=== PATIENT | female | born 1970 | race Caucasian/White ===

== ENCOUNTER 2016-12-05 20:32 | Emergency (ER) | payer OTHER ==
[~2016-12-05] VITALS: Wt 44.5 kg
[~2016-12-05 20:32] MED LIST: ADV10050 INHALATION; ALBU8.5H3 INH; ALPR0.25 PO; ALPR0.254 PO; CEPH-443 PO; IPRA4AER INHALATION; METH10TA5 PO; METO-429 PO; PROP20TA4 PO; TAP5 PO
--- NOTE | 2016-12-05 22:10 | EN ---
Date/Time of Note Date/Time of Note DATE: 12/05/16 TIME: 22:09 ER Progress Note Patient is a 38-year-old female with history of hyperthyroidism presents to the ER for shortness of breath, cough, nasal congestion. Upon his initial exam patient reveals she is currently suicidal and afraid to go home. Patient denies having plan. She states she has not ever been suicidal before. Patient seen pacing in room during exam. Dr. Wolff notified. FUAD DUEÑAS NP Dec 05, 2016 22:10
--- NOTE | 2016-12-05 22:54 | PSY ---
Date/Time of Note Date/Time of Note DATE: 12/05/16 TIME: 22:46 Psychiatric Subjective Eval Consent Pt consented to telemedicine: Yes Subjective Evaluation Patient location: emergency Chief Complaint: sob, coug and congestion Reason for consult: Suicidal ideation History of present illness Patient is a 38 year old female with not previous recorded psychiatric history. She presented to the ER today for cough and respiratory issues. She also informed the providers that she is suicidal. Patient states she has been depressed for about one week. She is not sleeping well, not eating well, feeling anhedonic, and having recurrent suicidal thinking. Her thoughts have advanced to the idea of overdosing. She does not feel safe out of the hospital and is scared that she will act on these thoughts. Patient has also been seeing "monsters" for about on year. She is not able to describe this but does admit to intermittent meth use during the year. He last use was last week. Patient is not sure if she has ever attempted to harm herself stating "I don't know." She is emotionally labile tonight and frequently breaks down crying. Past psychiatric history Not clear. She states she takes xanax and it appears she may have been on an antidepressant in the past. She denies past psychiatric hospitalization. Hospitalization: no Family History She is adopted Medical history Problems Medical Problems: (1) Abdominal pain Status: Acute (2) Dehydration Status: Acute (3) Hyperthyroidism Status: Acute (4) Hyperthyroidism Status: Chronic (5) Medication refill Status: Acute (6) Multiple complaints Status: Acute (7) Palpitations Status: Acute (8) UTI (urinary tract infection) Status: Acute (9) UTI (urinary tract infection) Status: Acute Allergies: Coded Allergies: Penicillins (Verified Allergy, Intermediate, 09/06/16) Sulfa (Sulfonamide Antibiotics) (Verified Allergy, Unknown, 10/17/16) Substance Abuse Substance abuse history: Yes (meth) Prior substance abuse treatmen: No Social History Marital status: single Level of education: Not addressed DPA/Conservatorship: No Occupation/Custodial: Not addressed - patient too labile Psychiatric Objective Eval Physical Examination: Physical Examination: Applicable Sleep: Insomnia Appetite: Decreased Energy: Decreased Interest: Decreased Mental Status Examination: Appearance: Disheveled Eye Contact: Fair Psychomotor Activity: Agitated Behavior: Cooperative Speech: Other (speech with tears and emotional labilie) AFFECT: Libile Mood: Depressed Though Process: Linear Thought Content: Delusions, Hallucinations Suicidal: Yes Homicidal: No On 72 hour hold: No Orientation: x3 Cognition: Alert Insight: Impared Judgement: Impared Attention Span: Distractible Assessment and Plan Assessment/Diagnosis [place] I: Unspecified Depressive Disorder, Stimulant Use Disorder [place] III: Thyroid Disorder Recommendation/Plan Medication Management Per inpatient psychiatry. Psychotherapy N/A Pt. Caregiver/Family Education N/A Follow-up/Disposition Recommend transfer to inpatient psychiatry for suicidal ideation. 5150 Recommendation: Place Hold (Patient reports suicidal ideation with plans of overdosing. Does not feel safe out of the hospital. ) JULIANNA ALEXIS Dec 05, 2016 22:53
[2016-12-05 22:57] LABS: ADD UMIC YES; URINE BILIRUBIN (Dip) NEGATIVE (NEGATIVE); URINE BLOOD (Dip) 2+ (NEGATIVE); URINE COLOR LT. YELLOW (YELLOW); URINE KETONES (Dip) NEGATIVE (NEGATIVE); URINE LEUKOCYTE ESTERASE (Dip) NEGATIVE (NEGATIVE); URINE NITRITE (Dip) NEGATIVE (NEGATIVE); URINE TOTAL PROTEIN (Dip) NEGATIVE (NEGATIVE); URINE UROBILINOGEN (Dip) 0.2 E.U./dL (0.1-1.0)
[2016-12-05 22:58] LABS: HEMATOCRIT 39.4 % (37.0-47.0); HEMOGLOBIN 12.7 g/dl (12.0-16.0); MEAN CORPUSCULAR HEMOGLOBIN 24.9 pg (29.0-33.0); MEAN CORPUSCULAR HGB CONC 32.2 g/dl (32.0-37.0); MEAN CORPUSCULAR VOLUME 77.1 fl (82.0-101.0); MEAN PLATELET VOLUME 10.5 fl (7.4-10.4); PLATELET COUNT 276 10^3/UL (140-440); RED CELL DISTRIBUTION WIDTH 14.3 % (11.5-14.5); UNCORRECTED WBC 6.1 10^3/ul (4.8-10.8); WHITE BLOOD COUNT 6.1 10^3/ul (4.8-10.8)
[2016-12-05 23:01] LABS: CONDITION 1; LH ANALYZER COMMENTS 1
[2016-12-05 23:03] LABS: ALBUMIN 3.4 g/dl (3.3-4.9)
[2016-12-05 23:04] LABS: CHLORIDE 104 mmol/L (97-110); SODIUM 145 mmol/L (135-144)
[2016-12-05 23:06] LABS: ALANINE AMINOTRANSFERASE 66 IU/L (13-69); ALBUMIN/GLOBULIN RATIO 0.82; ALKALINE PHOSPHATASE 202 IU/L (42-121); ANION GAP 17 (8-16); ASPARTATE AMINO TRANSFERASE 70 IU/L (15-46); BILIRUBIN,INDIRECT 0.1 mg/dl (0-1.1); BILIRUBIN,TOTAL 0.1 mg/dl (0.2-1.3); BLOOD UREA NITROGEN 14 mg/dl (7-20); CARBON DIOXIDE 28 mmol/L (21-31); CREATININE 0.34 mg/dl (0.44-1.00); TOTAL PROTEIN 7.5 g/dl (6.1-8.1)
[2016-12-05 23:07] LABS: CALCIUM 8.9 mg/dl (8.4-10.2); GLUCOSE 105 mg/dl (70-220)
[2016-12-05 23:09] LABS: ACETAMINOPHEN < 10.0 ug/ml (10.0-30.0); ETHANOL < 10.0 mg/dl; SALICYLATE < 1.0 mg/dl (5.0-30.0)
[2016-12-05 23:11] LABS: BACTERIA,URINE FEW; SQUAMOUS EPITHELIAL CELL,UR FEW
[2016-12-05 23:35] LABS: BARBITURATES NEGATIVE (NEGATIVE); BENZODIAZEPINES NEGATIVE (NEGATIVE); CANNABINOIDS NEGATIVE (NEGATIVE); COCAINE NEGATIVE (NEGATIVE); OPIATES NEGATIVE (NEGATIVE)
[2016-12-05 23:41] LABS: LYMPHOCYTES # 2.2 10^3/ul (0.8-2.9); MONOCYTE # 0.6 10^3/ul (0.3-0.9); NEUTROPHIL # 3.3 10^3/ul (1.6-7.5); PLATELET ESTIMATE PLT APPEAR ADEQUATE
--- NOTE | 2016-12-05 23:56 | ERA ---
ER Documentation Chief Complaint Date/Time DATE: 12/05/16 TIME: 23:55 Chief Complaint sob, coug and congestion HPI This is a 46-year-old female initially checked in with complaints of shortness with cough and congestion. Upon being interviewed, patient admits to being suicidal and using methamphetamines. She says she has no specific plan. Denies any hallucinations. Denies any other current complaints. ROS All systems reviewed and are negative except as per history of present illness. Medications Home Meds Active Scripts Methimazole* (Methimazole*) 10 Mg Tablet, 10 MG PO TID, #90 TAB Prov:MAIKEL LAWRENCE MD 10/17/16 Albuterol/Ipratropium* (Combivent Respimat*) 20-100 Mcg/Inh - 4 Gm Aer.w.adap, 1 PUFF INHALATION QID for WHEEZING, #1 INHALER Prov:MAIKEL LAWRENCE MD 10/17/16 Albuterol Sulfate* (Proair HFA*) 8.5 Gm Hfa.aer.ad, 2 PUFF INH Q6H Y for WHEEZING AND SOB, #1 INHALER Prov:MAIKEL LAWRENCE MD 10/17/16 Salmeterol Xinaf-Fluticasone* (Advair*) 100/50 Diskus Inhaler, 1 INH INHALATION BID, #1 INHALER Prov:MAIKEL LAWRENCE MD 10/17/16 Alprazolam* (Alprazolam*) 0.25 Mg Tablet, 0.25 MG PO TID Y for ANXIETY, #12 TAB Prov:MAIKEL LAWRENCE MD 10/17/16 Propranolol Hcl* (Propranolol Hcl*) 20 Mg Tablet, 20 MG PO TID, #90 TAB Prov:MAIKEL LAWRENCE MD 10/17/16 Metoprolol Tartrate* (Lopressor*) 50 Mg Tab, 50 MG PO BID Y for palpitations for 30 Days, TAB Prov:ANGELA MATIAS 09/08/16 Discontinued Scripts Cephalexin* (Keflex*) 500 Mg Capsule, 500 MG PO QID for 7 Days, CAP Prov:MAIKEL LAWRENCE MD 10/17/16 Albuterol/Ipratropium* (Combivent Respimat*) 20-100 Mcg/Inh - 4 Gm Aer.w.adap, 1 PUFF INHALATION Q4, #1 INHALER 2 Refills Prov:ANGELA MATIAS. 09/08/16 Salmeterol Xinaf-Fluticasone* (Advair*) 100/50 Diskus Inhaler, 1 INH INHALATION BID, #1 INHALER 2 Refills Prov:ANGELA MATIAS. 09/08/16 Alprazolam* (Xanax*) 0.25 Mg Tablet, 0.25 MG PO Q8H Y for ANXIETY, #20 TAB Prov:ANGELA MATIAS. 09/08/16 Methimazole* (Methimazole*) 5 Mg Tablet, 10 MG PO TID for 30 Days, TAB 2 Refills Prov:ANGELA MATIAS. 09/08/16 Allergies Allergies: Coded Allergies: Penicillins (Verified Allergy, Intermediate, 12/05/16) Sulfa (Sulfonamide Antibiotics) (Verified Allergy, Unknown, 12/05/16) PMhx/Soc History of Surgery: Yes (tubal ligation) Anesthesia Reaction: No Hx Neurological Disorder: No Hx Respiratory Disorders: Yes (asthma) Hx Cardiac Disorders: No Hx Psychiatric Problems: Yes (BIPOLAR) Hx Miscellaneous Medical Probl: No Hx Alcohol Use: No Hx Substance Use: Yes (METH 5 DAYS AGO) Hx Tobacco Use: Yes (1/2 PK) Smoking Status: Current every day smoker Physical Exam Vitals Vital Signs Date Time Temp Pulse Resp B/P Pulse Ox O2 Delivery O2 Flow Rate FiO2 12/05/16 20:36 98.8 125 20 130/82 98 Physical Exam Const: [] Head: Atraumatic Eyes: Normal Conjunctiva ENT: Normal External Ears, Nose and Mouth. Neck: Full range of motion..~ No meningismus. Resp: Clear to auscultation bilaterally Cardio: Regular rate and rhythm, no murmurs Abd: Soft, non tender, non distended. Normal bowel sounds Skin: No petechiae or rashes Back: No midline or flank tenderness Ext: No cyanosis, or edema Neur: Awake and alert Psych: Normal Mood and Affect Result Diagram: 12/05/16223112/05/162231 Results 24 hrs Laboratory Tests Test 12/05/16 22:26 12/05/16 22:32 Urine Amphetamines Screen POSITIVE Urine Bacteria FEW Urine Barbiturates NEGATIVE Urine Benzodiazepines Screen NEGATIVE Urine Bilirubin NEGATIVE Urine Cannabinoids NEGATIVE Urine Clarity CLEAR Urine Cocaine Screen NEGATIVE Urine Color LT. YELLOW Urine Glucose 0.5%% Urine Hemoglobin 2+ Urine Ketones NEGATIVE Urine Leukocyte Esterase NEGATIVE Urine Microscopic RBC 2-5/HPF Urine Microscopic WBC 0-2/HPF Urine Nitrite NEGATIVE Urine Opiates Screen NEGATIVE Urine Specific [place] 1.025 Urine Squamous Epithelial Cells FEW Urine Total Protein NEGATIVE Urine Urobilinogen 0.2 E.U./dL Urine pH 6.0 Acetaminophen Level < 10.0ug/ml Alanine Aminotransferase (ALT/SGPT) 66IU/L Albumin 3.4g/dl Albumin/Globulin Ratio 0.82 Alkaline Phosphatase 202IU/L Anion Gap 17 Aspartate Amino Transf (AST/SGOT) 70IU/L Blood Morphology Comment Blood Urea Nitrogen 14mg/dl Calcium Level 8.9mg/dl Carbon Dioxide Level 28mmol/L Chloride Level 104mmol/L Creatinine 0.34mg/dl Direct Bilirubin 0.00mg/dl Ethyl Alcohol Level < 10.0mg/dl Globulin 4.10g/dl Glucose Level 105mg/dl Hematocrit 39.4% Hemoglobin 12.7g/dl Indirect Bilirubin 0.1mg/dl Lymphocytes # 2.210^3/ul Lymphocytes % 36.0% Mean Corpuscular Hemoglobin 24.9pg Mean Corpuscular Hemoglobin Concent 32.2g/dl Mean Corpuscular Volume 77.1fl Mean Platelet Volume 10.5fl Monocytes # 0.610^3/ul Monocytes % 10.0% Neutrophils # 3.310^3/ul Neutrophils % 54.0% Platelet Count 57151^3/UL Platelet Estimate PLT APPEAR ADEQUATE Potassium Level 4.0mmol/L Red Blood Count 5.1010^6/ul Red Cell Distribution Width 14.3% Salicylates Level < 1.0mg/dl Serum HCG, Qualitative NEGATIVE Sodium Level 145mmol/L Total Bilirubin 0.1mg/dl Total Protein 7.5g/dl White Blood Count 6.110^3/ul Procedures/MDM Patient's behavioral symptoms have stabilized while in the department. Patient is medically cleared and appropriate for psychiatric evaluation and work up. No e/o neurologic, toxic, infectious, or metabolic cause. Patient was placed on a recommended 5150 hold by telemetry psychiatry. Patient awaiting PEG placement at this point. Clinically stable. Stable vital signs. Observation Note: Time: 4 hours Family Hx: No Hypertension Evaluation: Multiple exams showed improving symptoms and no evidence of deterioration Departure Diagnosis: Primary Impression: Suicidal ideation Condition: Stable RENETTA WALLER Dec 05, 2016 23:56
[2016-12-06 07:40] VITALS: BP 134/79; PULSE 95; RESP 18; TEMP 98.5
== END 2016-12-06 11:03 ==
LOC: E/R 20:32
DX: R06.02 Shortness of breath (principal); J45.909 Unspecified asthma, uncomplicated; R40.2142 Coma scale, eyes open, spontaneous, at arrival to emergency department; R40.2362 Coma scale, best motor response, obeys commands, at arrival to emergency department; R40.2252 Coma scale, best verbal response, oriented, at arrival to emergency department; F17.210 Nicotine dependence, cigarettes, uncomplicated; R45.851 Suicidal ideations
CPT/HCPCS: 36415; 80053; 80306; 80307; 81001; 84703; 85025; Z7502; 81003

== ENCOUNTER 2016-12-10 07:36 | Inpatient (IN) | END 2016-12-12 15:25 | disposition home or self-care (01) | DRG 192 | DX: J44.1 Chronic obstructive pulmonary disease with (acute) exacerbation (principal); F15.10 Other stimulant abuse, uncomplicated; E05.90 Thyrotoxicosis, unspecified without thyrotoxic crisis or storm; Z59.0 Homelessness ==

== ENCOUNTER 2017-04-09 01:32 | Emergency (ER) | payer OTHER ==
[~2017-04-09] VITALS: Wt 47.5 kg
[~2017-04-09 01:32] MED LIST changes: -ALBU8.5H3 INH; -ALPR0.25 PO; -CEPH-443 PO; -METO-429 PO; +METO-448 PO; -PROP20TA4 PO; -TAP5 PO
[2017-04-09 04:13] LABS: ADD SCAN DIFF NO
[2017-04-09 04:17] LABS: BASOPHILS % 0.3 % (0.0-2.0); EOSINOPHILS # 0.4 10^3/ul (0.0-0.5); HEMATOCRIT 42.9 % (37.0-47.0); HEMOGLOBIN 13.7 g/dl (12.0-16.0); LYMPHOCYTES # 2.4 10^3/ul (0.8-2.9); LYMPHOCYTES % 33.8 % (15.0-51.0); MEAN CORPUSCULAR HGB CONC 31.9 g/dl (32.0-37.0); MEAN CORPUSCULAR VOLUME 81.4 fl (82.0-101.0); MEAN PLATELET VOLUME 11.6 fl (7.4-10.4); MONOCYTE # 0.6 10^3/ul (0.3-0.9); MONOCYTES % 8.3 % (0.0-11.0); NEUTROPHIL # 3.7 10^3/ul (1.6-7.5); NEUTROPHILS % 52.5 % (39.0-77.0); PLATELET COUNT 279 10^3/UL (140-415); RED BLOOD COUNT 5.27 10^6/ul (4.20-5.40); RED CELL DISTRIBUTION WIDTH 13.7 % (11.5-14.5)
[2017-04-09 04:35] LABS: ADD UMIC YES; URINE BILIRUBIN (Dip) NEGATIVE (NEGATIVE); URINE BLOOD (Dip) NEGATIVE (NEGATIVE); URINE COLOR LT. YELLOW (YELLOW); URINE GLUCOSE (Dip) NEGATIVE (NEGATIVE); URINE KETONES (Dip) NEGATIVE (NEGATIVE); URINE LEUKOCYTE ESTERASE (Dip) TRACE (NEGATIVE); URINE NITRITE (Dip) NEGATIVE (NEGATIVE); URINE TOTAL PROTEIN (Dip) NEGATIVE (NEGATIVE); URINE UROBILINOGEN (Dip) 0.2 E.U./dL (0.1-1.0)
[2017-04-09 04:36] LABS: CHLORIDE 105 mmol/L (97-110); POTASSIUM 4.2 mmol/L (3.5-5.1); SODIUM 143 mmol/L (135-144)
[2017-04-09 04:39] LABS: ETHANOL < 10.0 mg/dl; SALICYLATE < 1.0 mg/dl (5.0-30.0)
[2017-04-09 04:39] LABS: ANION GAP 17 (8-16); BLOOD UREA NITROGEN 24 mg/dl (7-20); CALCIUM 9.2 mg/dl (8.4-10.2); CARBON DIOXIDE 25 mmol/L (21-31); CREATININE 0.41 mg/dl (0.44-1.00); GLUCOSE 103 mg/dl (70-220)
[2017-04-09 04:40] LABS: ACETAMINOPHEN < 10.0 ug/ml (10.0-30.0)
[2017-04-09 04:53] LABS: BACTERIA,URINE MODERATE; BARBITURATES NEGATIVE (NEGATIVE); BENZODIAZEPINES NEGATIVE (NEGATIVE); CANNABINOIDS POSITIVE (NEGATIVE); COCAINE NEGATIVE (NEGATIVE); OPIATES NEGATIVE (NEGATIVE); SQUAMOUS EPITHELIAL CELL,UR FEW; URINE RBCS 0-2 /HPF (0)
[2017-04-09 05:30] LABS: THYROID STIMULATING HORMONE < 0.015 MIU/L (0.465-4.680)
--- NOTE | 2017-04-09 05:34 | ERD ---
ER Documentation Chief Complaint Date/Time DATE: 04/09/17 TIME: 05:30 Chief Complaint Anxiety with history of hyperthyroidism HPI This 47-year-old female comes emergency room stating she has anxiety and she has a history of hyperthyroidism like her thyroid level checked. She feels jittery. She also says that she is hearing voices that tell her to hurt herself. She has a psychiatric history she states. She denies any headache or any specific pain. ROS All systems reviewed and are negative except as per history of present illness. Medications Home Meds Active Scripts Metoprolol Tartrate* (Lopressor*) 25 Mg Tab, 25 MG PO Q8, #63 TAB Prov:GABE JUNIOR 12/12/16 Methimazole* (Methimazole*) 10 Mg Tablet, 60 MG PO DAILY for 30 Days, TAB Prov:GABE JUNIOR 12/12/16 Albuterol/Ipratropium* (Combivent Respimat*) 20-100 Mcg/Inh - 4 Gm Aer.w.adap, 1 PUFF INHALATION QID for WHEEZING, #1 INHALER Prov:MAIKEL LAWRENCE MD 10/17/16 Salmeterol Xinaf-Fluticasone* (Advair*) 100/50 Diskus Inhaler, 1 INH INHALATION BID, #1 INHALER Prov:MAIKEL LAWRENCE MD 10/17/16 Alprazolam* (Alprazolam*) 0.25 Mg Tablet, 0.25 MG PO TID Y for ANXIETY, #12 TAB Prov:MAIKEL LAWRENCE MD 10/17/16 Allergies Allergies: Coded Allergies: Penicillins (Verified Allergy, Intermediate, 12/05/16) Sulfa (Sulfonamide Antibiotics) (Verified Allergy, Unknown, 12/05/16) PMhx/Soc History of Surgery: Yes (TUBAL LIGATION IN 1990) Anesthesia Reaction: No Hx Neurological Disorder: No Hx Respiratory Disorders: Yes (asthma) Hx Cardiac Disorders: No Hx Psychiatric Problems: No Hx Miscellaneous Medical Probl: No Hx Alcohol Use: No Hx Substance Use: No Hx Tobacco Use: Yes Smoking Status: Current every day smoker Physical Exam Vitals Vital Signs Date Time Temp Pulse Resp B/P Pulse Ox O2 Delivery O2 Flow Rate FiO2 04/09/17 11:05 97.8 70 18 125/79 99 Room Air 04/09/17 05:36 97.1 99 18 131/69 99 Room Air 04/09/17 01:39 98.6 75 20 133/63 100 Physical Exam Const: [] No acute distress Head: Atraumatic Eyes: Normal Conjunctiva, EOMI, GABY ENT: Normal External Ears, Nose and Mouth. Neck: Full range of motion..~ No meningismus. Resp: Clear to auscultation bilaterally Cardio: Regular rate and rhythm, no murmurs Abd: Soft, non tender, non distended. Normal bowel sounds Skin: No petechiae or rashes Back: No midline or flank tenderness Ext: No cyanosis, or edema Neur: Awake and alert and oriented 3, no focal deficits Psych: Appears anxious Result Diagram: 04/09/175 04/09/17 0345 Results 24 hrs Laboratory Tests Test 04/09/17 03:45 04/09/17 03:50 White Blood Count 7.010^3/ul Red Blood Count 5.2710^6/ul Hemoglobin 13.7g/dl Hematocrit 42.9% Mean Corpuscular Volume 81.4fl Mean Corpuscular Hemoglobin 26.0pg Mean Corpuscular Hemoglobin Concent 31.9g/dl Red Cell Distribution Width 13.7% Platelet Count 96519^3/UL Mean Platelet Volume 11.6fl Neutrophils % 52.5% Lymphocytes % 33.8% Monocytes % 8.3% Eosinophils % 5.0% Basophils % 0.3% Nucleated Red Blood Cells % 0.0/100WBC Neutrophils # 3.710^3/ul Lymphocytes # 2.410^3/ul Monocytes # 0.610^3/ul Eosinophils # 0.410^3/ul Basophils # 0.010^3/ul Nucleated Red Blood Cells # 0.010^3/ul Sodium Level 143mmol/L Potassium Level 4.2mmol/L Chloride Level 105mmol/L Carbon Dioxide Level 25mmol/L Anion Gap 17 Blood Urea Nitrogen 24mg/dl Creatinine 0.41mg/dl Glucose Level 103mg/dl Calcium Level 9.2mg/dl Thyroid Stimulating Hormone (TSH) < 0.015MIU/L Urine Color LT. YELLOW Urine Clarity SLIGHTLY CLOUDY Urine pH 7.0 Urine Specific [place] 1.020 Urine Ketones NEGATIVE Urine Nitrite NEGATIVE Urine Bilirubin NEGATIVE Urine Urobilinogen 0.2 E.U./dL Urine Leukocyte Esterase TRACE Urine Microscopic RBC 0-2/HPF Urine Microscopic WBC 5-10/HPF Urine Squamous Epithelial Cells FEW Urine Bacteria MODERATE Urine Hemoglobin NEGATIVE Urine Glucose NEGATIVE% Urine Total Protein NEGATIVE Free Thyroxine Index 4.44ug/ml Thyroxine (T4) 12.6ug/dl Triiodothyronine (T3) Uptake 35.2% Salicylates Level < 1.0mg/dl Urine Opiates Screen NEGATIVE Acetaminophen Level < 10.0ug/ml Urine Barbiturates NEGATIVE Urine Amphetamines Screen POSITIVE Urine Benzodiazepines Screen NEGATIVE Urine Cocaine Screen NEGATIVE Urine Cannabinoids POSITIVE Ethyl Alcohol Level < 10.0mg/dl Current Medications Medications (Trade) Dose Ordered Sig/[place] Route PRN Reason Start Time Stop Time Status Last Admin Dose Admin Lorazepam (Ativan) 0.5 mg ONCE ONCE PO 04/09/17 06:00 04/09/17 06:01 DC 04/09/17 05:41 Lorazepam (Ativan) 1 mg ONCE ONCE PO 04/09/17 06:30 04/09/17 06:31 DC Procedures/MDM Patient stating she is having auditory hallucinations that tell her to hurt herself. States that this is happened to her before. Vital signs stable currently. Psychiatric laboratories were obtained. No signs of infection or any electrolyte abnormalities. Patient is positive for methamphetamines and when told that she admits to using meth recently. Gave her an Ativan p.o. tab which helped with her symptoms. This would explain her current symptoms however in order to protect herself from harming herself or those thoughts we will have her evaluated by tele-psychiatry pending the results of her TSH level. Final disposition will be left to the oncoming physician. Departure Diagnosis: Primary Impression: Anxiety Additional Impression: Suicidal ideations Condition: SAM Figueroa DO April 09, 2017 05:34
[2017-04-09] MEDS ORDERED: LORAZEPAM 0.5 MG TAB PO ONE ×2 (06:00→17:30)
--- NOTE | 2017-04-09 06:25 | PSY ---
Date/Time of Note Date/Time of Note DATE: 04/09/17 TIME: 06:17 Psychiatric Subjective Eval Consent Pt consented to telemedicine: Yes Subjective Evaluation Patient location: emergency Chief Complaint: Anxiety with history of hyperthyroidism Reason for consult: SI VIA AUDITORY HALLUCINATIONS Hospitalization: no Medical history Problems Medical Problems: (1) Abdominal pain Status: Acute (2) Anxiety Status: Acute (3) Anxiety Status: Acute (4) Asthma, mild persistent Status: Chronic (5) Chemical dependency Status: Chronic (6) Dehydration Status: Acute (7) Hyperthyroidism Status: Acute (8) Hyperthyroidism Status: Chronic (9) Medication refill Status: Acute (10) Multiple complaints Status: Acute (11) Palpitations Status: Acute (12) Palpitations Status: Acute (13) Suicidal ideation Status: Acute (14) Suicidal ideations Status: Acute (15) Thyroid storm Status: Acute (16) UTI (urinary tract infection) Status: Acute (17) UTI (urinary tract infection) Status: Acute Allergies: Coded Allergies: Penicillins (Verified Allergy, Intermediate, 12/05/16) Sulfa (Sulfonamide Antibiotics) (Verified Allergy, Unknown, 12/05/16) Psychiatric Objective Eval Mental Status Examination: Laboratory Results Laboratory Tests Test 04/09/17 03:45 04/09/17 03:50 White Blood Count 7.010^3/ul Red Blood Count 5.2710^6/ul Hemoglobin 13.7g/dl Hematocrit 42.9% Mean Corpuscular Volume 81.4fl Mean Corpuscular Hemoglobin 26.0pg Mean Corpuscular Hemoglobin Concent 31.9g/dl Red Cell Distribution Width 13.7% Platelet Count 89969^3/UL Mean Platelet Volume 11.6fl Neutrophils % 52.5% Lymphocytes % 33.8% Monocytes % 8.3% Eosinophils % 5.0% Basophils % 0.3% Nucleated Red Blood Cells % 0.0/100WBC Neutrophils # 3.710^3/ul Lymphocytes # 2.410^3/ul Monocytes # 0.610^3/ul Eosinophils # 0.410^3/ul Basophils # 0.010^3/ul Nucleated Red Blood Cells # 0.010^3/ul Sodium Level 143mmol/L Potassium Level 4.2mmol/L Chloride Level 105mmol/L Carbon Dioxide Level 25mmol/L Anion Gap 17 Blood Urea Nitrogen 24mg/dl Creatinine 0.41mg/dl Glucose Level 103mg/dl Calcium Level 9.2mg/dl Thyroid Stimulating Hormone (TSH) < 0.015MIU/L Urine Color LT. YELLOW Urine Clarity SLIGHTLY CLOUDY Urine pH 7.0 Urine Specific [place] 1.020 Urine Ketones NEGATIVE Urine Nitrite NEGATIVE Urine Bilirubin NEGATIVE Urine Urobilinogen 0.2 E.U./dL Urine Leukocyte Esterase TRACE Urine Microscopic RBC 0-2/HPF Urine Microscopic WBC 5-10/HPF Urine Squamous Epithelial Cells FEW Urine Bacteria MODERATE Urine Hemoglobin NEGATIVE Urine Glucose NEGATIVE% Urine Total Protein NEGATIVE Salicylates Level < 1.0mg/dl Urine Opiates Screen NEGATIVE Acetaminophen Level < 10.0ug/ml Urine Barbiturates NEGATIVE Urine Amphetamines Screen POSITIVE Urine Benzodiazepines Screen NEGATIVE Urine Cocaine Screen NEGATIVE Urine Cannabinoids POSITIVE Ethyl Alcohol Level < 10.0mg/dl Assessment Additional comments: IDENTIFYING INFORMATION: 47 year old Female patient who is currently located at the hospital and for whom psychiatric consultation was requested. SOURCES OF INFORMATION: The patient who appears to be somewhat reliable and the medical records; the nursing staff. CHIEF COMPLAINT: "voices". HISTORY OF PRESENT ILLNESS: The patient was interviewed via telemedicine in the presence of and under the supervision of nursing staff of the hospital. The consent to conducting this interview via telemedicine was obtained by the nursing staff at the hospital. SANA Rojas reports that the patient presented with AH telling her to hurt herself. Received 0.5 mg of ativan po. Is not on a hold. The patient reports that she is hearing voices telling her to hurt herself. She reports that she can't take it anymore. Reports that she thought of suicide. Admits to VH of people. Reports that the voices are after her. Admits to feeling very depressed since several weeks ago; admits to anhedonia, insomnia, fatigue, fluctuating appetite. The patient denies using alcohol heavily or regularly. The patient reports using meth occasionally. Last use was a few days ago. The patient denies using any other substances. In terms of past psychiatric history, the patient reports having a history of no past psychiatric hospitalizations. The patient reports having a history of no past suicide attempts. PAST MEDICAL HISTORY: hyperthyroidism. CURRENT MEDICATIONS: ativan prn, thyroid medication. ALLERGIES TO MEDICATIONS: penicillin. SOCIAL HISTORY: lives alone, single, 2 children; not employed; on disability. LABORATORY TESTS: UDS positive for amphetamines, cannabinoids. Alcohol was not detected, CBC with MCV of 81.4, MCH 26.0. CMP with anion gap of 17, BUN 24, creatinine 0.41, TSH was less than 0.0 15. REVIEW OF SYSTEMS: Constitutional (e.g., fever, weight loss): negative; Eyes, Ears, Nose, Mouth, Throat: negative; Cardiovascular: negative; Respiratory: negative; Gastrointestinal: negative; Genitourinary: negative; Musculoskeletal: negative; Integumentary (skin and/or breast): negative; Neurological: negative; Psychiatric: as per HPI; Endocrine: negative; Hematologic/Lymphatic: negative; Allergic/Immunologic: negative. MENTAL STATUS EXAMINATION: General Appearance and Behavior: tearful, cooperative with the interview, pleasant with the current interviewer, makes poor eye contact, poorly groomed, no abnormal movements noted. Speech: Slow rate, regular rhythm, increased latency, low volume, decreased amount. Flow of thought: sequential, logical, goal-directed. Content of thought: positive for auditory hallucinations, no visual hallucinations, positive for paranoid delusions, positive for suicidal ideation; no homicidal ideation. Mood: "depressed". Affect: dysthymic, dysphoric, not reactive. Attention: normal based on the interview. Insight: fair. Judgment: poor. Memory: normal based on the interview. Sensorium: alert and oriented to person, April 08 or 2016, [facility]. ASSESSMENT: The patient's presentation and history are consistent with the diagnosis of unspecified psychotic disorder, stimulant use disorder. The patient presents with depressive and psychotic symptoms in the context of medication noncompliance and methamphetamine use. [place] I: unspecified psychotic disorder, stimulant use disorder. [place] II: Deferred. [place] III: see PMH. [place] IV: social stressors. [place] V: GAF:10. PLAN: - Medication management: Would administer one more dose of ativan 1 mg po at this time for mild agitation /anxiety. Would start haloperidol 5 mg IM PRN severe agitation q4 hours. Would start diphenhydramine 50 mg IM PRN severe agitation q4 hours. Would start lorazepam 2 mg IM PRN severe agitation q4 hours Will defer to the inpatient psychiatry team for other medication changes. - Labs: No other laboratory tests are needed at this time. - Psychotherapy: Provided supportive psychotherapy and psychoeducation. - Disposition: Would recommend voluntary admission to the inpatient psychiatric unit as the patient would benefit from such an intervention so long as the patient has been cleared medically for admission to psychiatry. The patient is agreeable to being hospitalized in the inpatient psychiatric unit at this time. Would place on suicide precautions. Discussed about the above plan with Dr. Saldana. ROBIN KERN MD April 09, 2017 06:25
[2017-04-09] MEDS ORDERED: LORAZEPAM 1 MG TAB PO ONE (06:30)
[2017-04-09 07:52] LABS: T3 UPTAKE 35.2 % (23.5-40.5)
[2017-04-09] MEDS: METHIMAZOLE 5 MG TAB PO ONE ×2 (14:23→14:24)
--- NOTE | 2017-04-10 14:19 | PSY ---
Date/Time of Note Date/Time of Note DATE: 04/10/17 TIME: 14:16 Psychiatric Subjective Eval Subjective Evaluation Patient location: emergency Chief Complaint: Anxiety with history of hyperthyroidism Reason for consult: PT DENIES SI , HI . NEEDS RE EVAL Hospitalization: no Medical history Problems Medical Problems: (1) Abdominal pain Status: Acute (2) Anxiety Status: Acute (3) Anxiety Status: Acute (4) Asthma, mild persistent Status: Chronic (5) Chemical dependency Status: Chronic (6) Dehydration Status: Acute (7) Hyperthyroidism Status: Acute (8) Hyperthyroidism Status: Chronic (9) Medication refill Status: Acute (10) Multiple complaints Status: Acute (11) Palpitations Status: Acute (12) Palpitations Status: Acute (13) Suicidal ideation Status: Acute (14) Suicidal ideations Status: Acute (15) Thyroid storm Status: Acute (16) UTI (urinary tract infection) Status: Acute (17) UTI (urinary tract infection) Status: Acute Allergies: Coded Allergies: Penicillins (Verified Allergy, Intermediate, 12/05/16) Sulfa (Sulfonamide Antibiotics) (Verified Allergy, Unknown, 12/05/16) Social History Marital status: single DPA/Conservatorship: No Psychiatric Objective Eval Mental Status Examination: Laboratory Results Laboratory Tests Test 04/09/17 03:45 04/09/17 03:50 White Blood Count 7.010^3/ul Red Blood Count 5.2710^6/ul Hemoglobin 13.7g/dl Hematocrit 42.9% Mean Corpuscular Volume 81.4fl Mean Corpuscular Hemoglobin 26.0pg Mean Corpuscular Hemoglobin Concent 31.9g/dl Red Cell Distribution Width 13.7% Platelet Count 44823^3/UL Mean Platelet Volume 11.6fl Neutrophils % 52.5% Lymphocytes % 33.8% Monocytes % 8.3% Eosinophils % 5.0% Basophils % 0.3% Nucleated Red Blood Cells % 0.0/100WBC Neutrophils # 3.710^3/ul Lymphocytes # 2.410^3/ul Monocytes # 0.610^3/ul Eosinophils # 0.410^3/ul Basophils # 0.010^3/ul Nucleated Red Blood Cells # 0.010^3/ul Sodium Level 143mmol/L Potassium Level 4.2mmol/L Chloride Level 105mmol/L Carbon Dioxide Level 25mmol/L Anion Gap 17 Blood Urea Nitrogen 24mg/dl Creatinine 0.41mg/dl Glucose Level 103mg/dl Calcium Level 9.2mg/dl Thyroid Stimulating Hormone (TSH) < 0.015MIU/L Urine Color LT. YELLOW Urine Clarity SLIGHTLY CLOUDY Urine pH 7.0 Urine Specific [place] 1.020 Urine Ketones NEGATIVE Urine Nitrite NEGATIVE Urine Bilirubin NEGATIVE Urine Urobilinogen 0.2 E.U./dL Urine Leukocyte Esterase TRACE Urine Microscopic RBC 0-2/HPF Urine Microscopic WBC 5-10/HPF Urine Squamous Epithelial Cells FEW Urine Bacteria MODERATE Urine Hemoglobin NEGATIVE Urine Glucose NEGATIVE% Urine Total Protein NEGATIVE Free Thyroxine Index 4.44ug/ml Thyroxine (T4) 12.6ug/dl Triiodothyronine (T3) Uptake 35.2% Salicylates Level < 1.0mg/dl Urine Opiates Screen NEGATIVE Acetaminophen Level < 10.0ug/ml Urine Barbiturates NEGATIVE Urine Amphetamines Screen POSITIVE Urine Benzodiazepines Screen NEGATIVE Urine Cocaine Screen NEGATIVE Urine Cannabinoids POSITIVE Ethyl Alcohol Level < 10.0mg/dl Assessment and Plan Recommendation/Plan Follow-up/Disposition Pt is 47 yo female presenting to ED c/o acitve Si and command , she was seen by Dr Majano who recommedned inpt psych. Pt was agreeable to volutnary admission.Now she demends to leave. She is anxious, she is non disclosing, she keeps repeating: 'I am fine! I lied!!" The patient reports that she is hearing voices telling her to hurt herself. She reports that she can't take it anymore. Reports that she thought of suicide. Admits to VH of people. Reports that the voices are after her. Admits to feeling very depressed since several weeks ago; admits to anhedonia, insomnia, fatigue, fluctuating appetite. The patient denies using alcohol heavily or regularly. The patient reports using meth occasionally. Last use was a few days ago. The patient denies using any other substances. In terms of past psychiatric history, the patient reports having a history of no past psychiatric hospitalizations. The patient reports having a history of no past suicide attempts. PAST MEDICAL HISTORY: hyperthyroidism. CURRENT MEDICATIONS: ativan prn, thyroid medication. ALLERGIES TO MEDICATIONS: penicillin. SOCIAL HISTORY: lives alone, single, 2 children; not employed; on disability. LABORATORY TESTS: UDS positive for amphetamines, cannabinoids. Alcohol was not detected, CBC with MCV of 81.4, MCH 26.0. CMP with anion gap of 17, BUN 24, creatinine 0.41, TSH was less than 0.0 15. REVIEW OF SYSTEMS: Constitutional (e.g., fever, weight loss): negative; Eyes, Ears, Nose, Mouth, Throat: negative; Cardiovascular: negative; Respiratory: negative; Gastrointestinal: negative; Genitourinary: negative; Musculoskeletal: negative; Integumentary (skin and/or breast): negative; Neurological: negative; Psychiatric: as per HPI; Endocrine: negative; Hematologic/Lymphatic: negative; Allergic/Immunologic: negative. MENTAL STATUS EXAMINATION: General Appearance and Behavior: tearful, cooperative with the interview, pleasant with the current interviewer, makes poor eye contact, poorly groomed, no abnormal movements noted. Speech: Slow rate, regular rhythm, increased latency, low volume, decreased amount. Flow of thought: sequential, logical, goal-directed. Content of thought: positive for auditory hallucinations, no visual hallucinations, positive for paranoid delusions, positive for suicidal ideation; no homicidal ideation. Mood: "depressed". Affect: dysthymic, dysphoric, not reactive. Attention: normal based on the interview. Insight: fair. Judgment: poor. Memory: normal based on the interview. Sensorium: alert and oriented to person, April 08 or 2016, [facility] ASSESSMENT: The patient's presentation and history are consistent with the diagnosis of unspecified psychotic disorder, stimulant use disorder. The patient presents with depressive and psychotic symptoms in the context of medication noncompliance and methamphetamine use. Diana I: unspecified psychotic disorder, stimulant use disorder. Diana II: Deferred. Diana III: see PMH. Diana IV: social stressors. Diana V: GAF:10. PLAN: - Medication management: Would administer one more dose of ativan 1 mg po at this time for mild agitation /anxiety. Would start haloperidol 5 mg IM PRN severe agitation q4 hours. Would start diphenhydramine 50 mg IM PRN severe agitation q4 hours. Would start lorazepam 2 mg IM PRN severe agitation q4 hours Will defer to the inpatient psychiatry team for other medication changes. - Labs: No other laboratory tests are needed at this time. - Psychotherapy: Provided supportive psychotherapy and psychoeducation. - Disposition: 5150 for DTS; transfer to [facility] psych. 5150 Recommendation: Place KECIA Reynoso MD April 10, 2017 14:19
[2017-04-10] MEDS ORDERED: LORAZEPAM 1 MG TAB PO ONE (14:30)
[2017-04-10 18:40] VITALS: BP 130/78; PULSE 94; RESP 17; TEMP 98.7
[2017-04-10 19:00] LABS: T3 UPTAKE 34.1 % (23.5-40.5)
[2017-04-10] MEDS ORDERED: PROPYLTHIOURACIL 50 MG TAB PO ONE (19:30)
[2017-04-10] MEDS ORDERED: PROP50TA2 PO (19:54)
--- NOTE | 2017-04-10 20:05 | EN ---
Date/Time of Note Date/Time of Note DATE: 04/10/17 TIME: 20:02 ER Progress Note This patient who I initially saw for psychiatric reasons and anxiety turned out to be hypothyroid. She has a history of Graves' disease. She is definitely not in thyrotoxicosis as her vital signs are stable. She initially was positive for methamphetamines and I believe this was the reason for her psychiatric symptoms. She does not have that anymore. She does not want to hurt herself or others and feels well currently. Her is at her bedside. I do not believe that she needs or would benefit from psychiatric admission at this point. Giving her a dose of PTU, and she says that works for her better than methimazole. Also discharging her with 5 days of 50 mg PTU twice daily. She states that she has an second facing baster that she can call has been following her. Must providing with primary care follow-up but being second facing baster is the most important at this point counseled her on methamphetamine abuse. Discharge diagnoses: Anxiety, hyperthyroidism, methamphetamine abuse SAM GOLDMAN DO April 10, 2017 20:05
== END 2017-04-10 20:07 | disposition home or self-care (01) ==
LOC: E/R 01:32
DX: F41.9 Anxiety disorder, unspecified (principal); R45.851 Suicidal ideations; E03.9 Hypothyroidism, unspecified; J45.909 Unspecified asthma, uncomplicated; R40.2142 Coma scale, eyes open, spontaneous, at arrival to emergency department; R40.2252 Coma scale, best verbal response, oriented, at arrival to emergency department; R40.2362 Coma scale, best motor response, obeys commands, at arrival to emergency department; F17.210 Nicotine dependence, cigarettes, uncomplicated
CPT/HCPCS: 80048; 80306; 80307; 81001; 84436; 84443; 84479; 85025; Z7502; Z7610; 81003; 99283

== ENCOUNTER 2018-03-03 23:30 | Inpatient (IN) | END 2018-03-05 14:16 | disposition home or self-care (01) | DRG 644 ==

== ENCOUNTER 2018-06-16 00:32 | Emergency (ER) | END 2018-06-16 04:26 | disposition home or self-care (01) ==

== ENCOUNTER 2019-05-14 22:35 | Emergency (ER) | payer OTHER ==
[~2019-05-14] VITALS: Ht 160 cm; Wt 42.6 kg
[~2019-05-14 22:35] MED LIST changes: -ADV10050 INHALATION; +ALBU8.5H8 INH; -ALPR0.254 PO; -IPRA4AER INHALATION; -METO-448 PO; +PROP10TA6 PO; +PROP20TA4 PO
[2019-05-14 22:41] VITALS: Ht 160 cm; Wt 42.6 kg
[2019-05-14] MEDS ORDERED: morphine 2 MG INJ IV STA (23:40)
[2019-05-14] MEDS ORDERED: LEVOFLOXACIN 500MG/D5W (PMX) 100 ML IVPB STA (23:40)
[2019-05-14] MEDS ORDERED: ONDANSETRON 4 MG INJ IV STA (23:40)
[2019-05-14] MEDS ORDERED: SODIUM CHLORIDE 0.9% 1L BAG IV* STA (23:40)
[2019-05-14] MEDS ORDERED: CEPH500C PO (23:42)
--- NOTE | 2019-05-15 00:13 | ERD ---
ER Documentation Chief Complaint Chief Complaint L SIDE FLANK PAIN, RECENT DX UTI, STOPPED KEFLEX D/T REACTION HPI 49-year-old female presenting with lower abdominal and bilateral flank pain. 3 days ago she was seen at [facility] where she was diagnosed with a UTI. She was prescribed Keflex which she only took a few tablets of. She started having a rash and itching from the Keflex so she stopped taking the medication. Her lower abdominal pain has worsened. She describes as aching, radiating to her back bilaterally, worse with movement. She has associated frequency, urgency, and dysuria. She has had associated fevers and chills. No vomiting or diarrhea. ROS All systems reviewed and are negative except as per history of present illness. Medications Home Meds Active Scripts Levofloxacin* (Levaquin*) 750 Mg Tablet, 750 MG PO DAILY for 4 Days, TAB Prov:NIMA VIEYRA MD 05/15/19 Ondansetron (Ondansetron Odt) 4 Mg Tab.rapdis, 4 MG PO Q6H PRN for NAUSEA AND/OR VOMITING, #10 TAB Prov:NIMA VIEYRA MD 05/15/19 Albuterol Sulfate* (Proair HFA*) 8.5 Gm Hfa.aer.ad, 2 PUFF INH Q4H PRN for WHEEZING AND SOB, #1 INHALER Prov:KAM KEMP MD 06/16/18 Propranolol Hcl* (Propranolol Hcl*) 20 Mg Tablet, 20 MG PO TID for 7 Days, TAB Prov:KAM KEMP MD 06/16/18 Methimazole* (Methimazole*) 10 Mg Tablet, 10 MG PO TID for 7 Days, TAB Prov:KAM KEMP MD 06/16/18 Propranolol Hcl* (Propranolol Hcl*) 10 Mg Tablet, 10 MG PO TID for 7 Days, TAB Prov:KAM KEMP MD 06/16/18 Reported Medications Cephalexin* (Cephalexin*) 500 Mg Capsule, 500 MG PO Q6, #28 CAP 05/14/19 Allergies Allergies: Coded Allergies: Penicillins (Unverified Allergy, Severe, Hives, 05/14/19) Sulfa (Sulfonamide Antibiotics) (Unverified Allergy, Unknown, 05/14/19) PMhx/Soc History of Surgery: Yes (tubal ligation) Anesthesia Reaction: No Hx Neurological Disorder: No Hx Respiratory Disorders: Yes (Asthma, COPD) Hx Cardiac Disorders: No Hx Psychiatric Problems: Yes (anxiety, depression) Hx Miscellaneous Medical Probl: Yes (Graves dz) Hx Alcohol Use: No Hx Substance Use: Yes (Methamphetamine- past; MJ daily) Hx Tobacco Use: Yes Smoking Status: Current every day smoker FmHx Family History: No diabetes Physical Exam Vitals Vital Signs Date Temp Pulse Resp B/P (MAP) Pulse Ox O2 O2 Flow FiO2 Time Delivery Rate 05/15/19 106 16 132/75 96 Room Air 02:55 (94) 05/15/19 97.9 110 16 124/89 100 Room Air 00:12 (101) 05/14/19 97.2 104 18 111/51 99 22:41 (71) Physical Exam Const: No acute distress Head: Atraumatic Eyes: Normal Conjunctiva ENT: Normal External Ears, Nose and Mouth. Neck: Full range of motion. No meningismus. Resp: Clear to auscultation bilaterally Cardio: Tachycardic with regular rhythm, no murmurs Abd: Soft, diffuse tenderness in the lower abdomen with guarding, no rebound, non distended. Normal bowel sounds Skin: No petechiae or rashes Back: Bilateral CVA tenderness Ext: No cyanosis, or edema Neur: Awake and alert Psych: Normal Mood and Affect Result Diagram: 05/14/19 2340 05/14/19 2340 Results 24 hrs Laboratory Tests Test 05/14/19 23:40 05/14/19 23:46 White Blood Count 4.3 10^3/ul Red Blood Count 5.31 10^6/ul Hemoglobin 13.7 g/dl Hematocrit 43.0 % Mean Corpuscular Volume 81.0 fl Mean Corpuscular Hemoglobin 25.8 pg Mean Corpuscular Hemoglobin Concent 31.9 g/dl Red Cell Distribution Width 13.1 % Platelet Count 222 10^3/UL Mean Platelet Volume 12.1 fl Immature Granulocytes % 0.200 % Neutrophils % 52.8 % Lymphocytes % 27.3 % Monocytes % 9.9 % Eosinophils % 9.6 % Basophils % 0.2 % Nucleated Red Blood Cells % 0.0 /100WBC Immature Granulocytes # 0.010 10^3/ul Neutrophils # 2.2 10^3/ul Lymphocytes # 1.2 10^3/ul Monocytes # 0.4 10^3/ul Eosinophils # 0.4 10^3/ul Basophils # 0.0 10^3/ul Nucleated Red Blood Cells # 0.0 10^3/ul Urine Color YELLOW Urine Clarity CLOUDY Urine pH 5.0 Urine Specific [place] 1.016 Urine Ketones NEGATIVE mg/dL Urine Nitrite NEGATIVE mg/dL Urine Bilirubin NEGATIVE mg/dL Urine Urobilinogen NEGATIVE mg/dL Urine Leukocyte Esterase NEGATIVE Mayra/ul Urine Microscopic RBC 3 /HPF Urine Microscopic WBC 2 /HPF Urine Squamous Epithelial Cells MANY /HPF Urine Bacteria FEW /HPF Urine Mucus FEW /HPF Urine Hemoglobin 1+ mg/dL Urine Glucose NEGATIVE mg/dL Urine Total Protein NEGATIVE mg/dl Sodium Level 144 mmol/L Potassium Level 3.7 mmol/L Chloride Level 101 mmol/L Carbon Dioxide Level 30 mmol/L Anion Gap 13 Blood Urea Nitrogen 18 mg/dl Creatinine 0.30 mg/dl Est Glomerular Filtrat Rate mL/min > 60 mL/min Glucose Level 103 mg/dl Calcium Level 9.0 mg/dl Total Bilirubin 0.4 mg/dl Direct Bilirubin 0.00 mg/dl Indirect Bilirubin 0.4 mg/dl Aspartate Amino Transf (AST/SGOT) 31 IU/L Alanine Aminotransferase (ALT/SGPT) 26 IU/L Alkaline Phosphatase 175 IU/L Total Protein 7.4 g/dl Albumin 3.9 g/dl Globulin 3.50 g/dl Albumin/Globulin Ratio 1.11 POC Venous Lactate 1.1 mmol/L Current Medications Medications Dose Sig/Beronica Start Time Status Last (Trade) Ordered Route PRN Stop Time Admin Dose Reason Admin Sodium 1,280 ml BOLUS OVER 2 05/14/19 DC 05/14/19 Chloride HOURS STAT 23:40 23:51 (NS) IV* 05/14/19 23:44 100 ml @ ONCE STAT 05/14/19 DC 05/14/19 Levofloxacin/ 100 mls/hr IVPB 23:40 23:51 Dextrose 05/15/19 00:39 Morphine 2 mg ONCE STAT 05/14/19 DC 05/14/19 Sulfate IV 23:40 23:51 (morphine) 05/14/19 23:45 Ondansetron 4 mg ONCE STAT 05/14/19 DC 05/14/19 HCl (Zofran IV 23:40 23:51 Inj) 05/14/19 23:45 Sodium 100 ml @ ud STK-MED 05/15/19 DC 05/15/19 Chloride ONCE .ROUTE 00:46 01:09 05/15/19 00:47 Iohexol 150 ml STK-MED 05/15/19 DC 05/15/19 (Omnipaque ONCE .ROUTE 00:46 01:09 300mg/ ml) 05/15/19 00:47 Ketorolac 15 mg ONCE STAT 05/15/19 DC 05/15/19 Tromethamine IV 02:38 02:48 (Toradol) 05/15/19 02:39 10 mg ONCE ONCE 05/15/19 05/15/19 Metoclopramid IV 03:00 02:48 e HCl 05/15/19 03:01 (Reglan) Procedures/MDM EMERGENT LABS AND DIAGNOSTIC STUDIES: Lab Results above were reviewed and interpreted by me. CBC: no anemia or evidence of infection CMP: No evidence of clinically significant electrolyte abnormality, acidosis, renal failure, hypoglycemia, liver disease, or biliary obstruction Lactate within normal limits without evidence of sepsis or tissue hypoperfusion UA: no evidence of infection Radiology Results as interpreted by Radiology below were reviewed by Vidya Vieyra MD: CT A/P: IMPRESSION: 1. Mildly thickened small bowel with fluid identified distally without obstruction suggestive of an enteritis. Clinical correlation is necessary. 2. No CT evidence for appendicitis. 3. Enlarged lobular heterogeneous presumably fibromatous uterus. 4. Ovarian cysts. 5. Degenerative changes lower lumbar spine. .Jaiden Arora MD, Date Time Electronically viewed and signed by .Jaiden Arora MD, on 05/15/2019 02:14 Initial Nursing notes reviewed. Previous Medical Records requested via the Electronic Health Record. EMERGENCY DEPARTMENT COURSE / MEDICAL DECISION MAKING: Patient presents with lower abdominal pain associated with bilateral flank pain and dysuria. Vitals are notable for tachycardia, however patient states that she always has tachycardia due to her Graves' disease. She was treated with IV fluids. There is no evidence of severe sepsis or septic shock. Urinalysis was negative but she recently did take antibiotics so this may be affecting the results. However the patient is symptomatic so I will treat her for a UTI. At this time I cannot rule out pyelonephritis. For this reason she was treated with IV levofloxacin here and will be given oral levofloxacin for home. Her CT abdomen pelvis showed evidence of enteritis, but no other acute abnormalities. Upon reevaluation patient feels much better. She is stable for discharge with continued outpatient management. Strict return precautions discussed. Prescription for Zofran and Levaquin given. Follow-up with PCP recommended within the next 2 to 3 days. Patient's blood pressure was elevated (>120/80) but appears stable without evidence of hypertensive emergency or urgency. The patient was counseled about the risks of hypertension and urged to pursue outpatient monitoring and therapy within a week with their primary care physician. Departure Diagnosis: Primary Impression: Enteritis Additional Impression: Dysuria Condition: Stable EKNIMA STINSON MD May 15, 2019 00:13
[2019-05-15] MEDS ORDERED: SOD CHLORIDE 0.9% 100 ML ONE (00:46)
[2019-05-15] MEDS ORDERED: IOHEXOL 300MG/ML 150 ML BTL ONE (00:46)
[2019-05-15] MEDS ORDERED: KETOROLAC 15 MG INJ IV STA (02:38)
[2019-05-15] MEDS ORDERED: LEVO750T25 PO (02:47)
[2019-05-15] MEDS ORDERED: ONDA4TAB14 PO (02:47)
[2019-05-15] MEDS ORDERED: METOCLOPRAMIDE 10 MG INJ IV ONE (03:00)
[2019-05-15 04:20] VITALS: BP 109/62; PULSE 100; RESP 16
== END 2019-05-15 04:20 | disposition home or self-care (01) ==
LOC: E/R 22:35
DX: K52.9 Noninfective gastroenteritis and colitis, unspecified (principal); R30.0 Dysuria; J44.9 Chronic obstructive pulmonary disease, unspecified; F17.210 Nicotine dependence, cigarettes, uncomplicated
CPT/HCPCS: 36415; 74177; 80053; 81001; 83605; 85025; 87040; 87086; 96374; 96375; J1885; J1956; J2270; J2405; J2765; J7030; Q9967; Z7502; Z7610